=== PATIENT | male | born 1935 | race Caucasian/White ===

== ENCOUNTER 2022-04-08 12:38 | Emergency (ER) | payer MEDICARE, OTHER ==
[2022-04-08 14:10] VITALS: BP 160/89; PULSE 70
[2022-04-08] MEDS ORDERED: Albuterol/Ipratropium 3.0-0.5 MG/3 ML Neb Soln NEB ONE (14:43)
[2022-04-08 15:29] LABS: ANION GAP 10.5 mEq/L (7-13)
== END 2022-04-08 16:11 | disposition home or self-care (01) ==
LOC: DL.ED 12:38
DX: J44.1 Chronic obstructive pulmonary disease with (acute) exacerbation (principal); I25.10 Atherosclerotic heart disease of native coronary artery without angina pectoris; N18.9 Chronic kidney disease, unspecified; M19.90 Unspecified osteoarthritis, unspecified site; Z88.8 Allergy status to other drugs, medicaments and biological substances; Z79.82 Long term (current) use of aspirin; Z79.899 Other long term (current) drug therapy
CPT/HCPCS: 36415; 71045; 80053; 83880; 85025; 94640; 99284; J7620-GY